=== PATIENT | female | born 1960 | race Two or more races ===

== ENCOUNTER → 2019-11-18 | Outpatient (CLI) | payer MEDICAID ==
[~2019-11-18] MED LIST: ACET650S22 PO; AMLO10TA80 PO; ATOR20TA65 PO; GABA-531 PO; IBUP-2030 PO; INSU300I SQ; LISI-604 PO; METF-416 PO; TIMO5DRO27 EACHEYE; [UNRECOGNIZED DRUG - CODE] PO
== END | disposition home or self-care (01) ==
LOC: LAB 09:08
PROVIDERS: ATTEND Neurological Surgery
DX: Z01.818 Encounter for other preprocedural examination (principal); Z11.59 Encounter for screening for other viral diseases
CPT/HCPCS: U0003-CS